=== PATIENT | male | born 1995 | race Caucasian/White ===

== ENCOUNTER → 2018-02-15 10:47 | Outpatient (CLI) | payer OTHER, SELFPAY ==
--- NOTE | 2018-02-15 11:03 | US_ITS ---
US breast LT complete INDICATION: Gynecomastia, left breast mass ORDERING PHYSICIAN: Pablo Butler MD PATIENT AGE: 22 years COMPARISON: None TECHNIQUE: Standard ultrasound of the left rest complete FINDINGS: There is a an area of isoechogenicity in the retroareolar region on the left with flame shaped appearance measuring 3 x 1.9 cm having characteristic appearance of gynecomastia. There is good through transmission of sound with homogeneous echogenicity. Survey of the right retroareolar region is unremarkable. IMPRESSION: The findings are consistent with gynecomastia left breast. Follow-upas clinically warranted IMPRESSION: BI-RADS Category 2 benign findings. Follow-up as clinically warranted (A letter has been sent to the patient regarding results of the study.)
== END ==
PROVIDERS: PCP Family Medicine; Visit Provider Family Medicine
DX: N62 Hypertrophy of breast (principal)
CPT/HCPCS: 76641

== ENCOUNTER 2024-07-20 12:20 | Emergency (ER) | payer BC, SELFPAY ==
[2024-07-20 14:16] VITALS: BP 142/93; PULSE 82; RESP 19; TEMP 37.1; O2SAT 98; BMI 38.3
--- NOTE | 2024-07-20 14:19 | EXP.UTC ---
Discharge Plan Disposition Patient Disposition: Home, Self-Care Condition: Good Prescriptions Prescriptions: New ciprofloxacin-dexamethasone 0.3-0.1 % drops,suspension 4 drp otic (ear) BID 7 Days Qty: 7.5 0RF Rx Instructions: in right ear as directed No Action amoxicillin-pot clavulanate 875-125 mg tablet 1 tab PO DAILY Referrals Follow up/Referrals: Pablo Butler MD [Primary Care Provider] - See instructions Activity Restrictions/Add. Instructions Additional Instructions/Restrictions: Continue oral antibiotics Use ear drops as prescribed Follow up with your Family Doctor if no improvement or any worsening of symptoms Return if needed Clinical Impressions Clinical Impression: Otitis media, Otitis externa Instructions Patient Instructions: Ciprofloxacin and Dexamethasone Otic, How to Instill Ear Drops Print Language Print Language: [place] Discharge ED Provider: Kathy Falcon [facility] General Stated complaint: right ear pain Mode of Arrival: Ambulatory Source of Information: Patient Limitations: No Limitations Time Seen by Provider: 07/20/24 14:19 Description of Symptoms (Recalled from Triage Doc. by RN): RIGHT EAR PAIN, PRESSURE, TROUBLE HEARING HEENT Symptoms (Recalled from RN notes): Yes Resp Symptoms (Recalled from RN notes): No Skin Symptoms (Recalled from RN notes): No MS Symptoms (Recalled from RN notes): No Functional Status (Recalled from RN notes): NA History of Present Illness Provider Complaint: Patient states that he has been having pain and pressure in his right ear and not able to hear out of it and it is sore to the touch and getting worse States he did a telehealth visit a couple days ago and was prescribed some Augmentin but not sure that it is helping it much it has continued to get worse so he came in today Related Data Home Medications ?Medication ?Instructions ?Recorded ?Confirmed amoxicillin 875 mg-potassium 1 tab PO DAILY 07/20/24 07/20/24 clavulanate 125 mg tablet Previous Rx's ?Medication ?Instructions ?Recorded ciprofloxacin 0.3 %-dexamethasone 4 drp otic (ear) BID 7 days #7.5 mL 07/20/24 0.1 % ear drops,suspension Allergies Allergy/AdvReac Type Severity Reaction Status Date / Time CODEINE Allergy Unknown Uncoded 06/01/17 15:06 SULFA (SULFONAMIDE) Allergy Unknown Uncoded 06/01/17 15:06 Worker's Comp Is this a Worker's Comp case?: No [facility] Disclaimer: The information contained in this section may have been updated after the patient was seen, as this information can be updated by other users. Social History Smoking Status: Unknown if ever smoked alcohol intake: never current occupational status: employed Travel in the last 8 weeks: None ROS Obtained: Yes All systems reviewed & no additional complaints except as documented and Yes Systems reviewed as appropriate & no additional complaints except as documented Constitutional Constitutional: Reports system reviewed and no additional complaints, except as documented and Reports as per HPI ENT Ears, Nose, Mouth, and Throat: Reports system reviewed and no additional complaints, except as documented, Reports as per HPI and Reports otalgia Cardiovascular Cardiovascular: Reports system reviewed and no additional complaints, except as documented and Reports as per HPI Respiratory Respiratory: Reports system reviewed and no additional complaints, except as documented and Reports as per HPI Gastrointestinal Gastrointestingal: Reports system reviewed and no additional complaints, except as documented and as per HPI Musculoskeletal Musculoskeletal: Reports system reviewed and no additional complaints, except as documented and Reports as per HPI Physical Exam General General appearance: alert and in no apparent distress ENT ENT exam: Present mucous membranes moist Expanded ENT Exam External ear exam: Present pain with movement (right) TM/Canal exam: Right TM: erythema and loss of landmarks Respiratory Respiratory exam: Present normal lung sounds bilaterally; Absent respiratory distress or wheezes Cardiovascular Cardiovascular exam: Present regular rate, normal rhythm and normal heart sounds Abdominal Exam Abdominal exam: Present soft and normal bowel sounds; Absent distention or tenderness Neurological Exam Neurological exam: Present alert, oriented X3 and normal gait Medical Decision Making Medical Records Screening: Per USPSTF and CDC recommendations, given the prevalence of disease in our region, it is our hospital?s policy to screen for HIV and viral Hepatitis for all patients aged 18 and over and those with ongoing risk factors. [place] Inquiry Pt receiving controlled substance: No [place] was queried for this patient: No Vital Signs: 07/20/24 14:16 Temperature 98.7 F Temperature Source Oral Pulse Rate [Left Radial] 82 Respiratory Rate 19 Blood Pressure [Right Arm] 142/93 H Blood Pressure Mean [Right Arm] 109 02 Sat by Pulse Oximetry 98
[2024-07-20 14:29] VITALS: BP 142/93; PULSE 82; RESP 19; TEMP 37.1; O2SAT 98
== END 2024-07-20 14:34 | disposition home or self-care (01) ==
PROVIDERS: Emergency Provider Nurse Practitioner; PCP Family Medicine
DX: H60.91 Unspecified otitis externa, right ear (principal); H66.91 Otitis media, unspecified, right ear
CPT/HCPCS: 99213; G0381